=== PATIENT | male | born 1990 ===

== ENCOUNTER 2018-03-22 15:58 | Emergency (ER) | payer OTHER ==
[2018-03-22 16:28] VITALS: BMI 41.3
--- NOTE | 2018-03-22 17:48 | ED PDOC ---
History of Present Illness History of Present Illness: 28 year old male with a history of asthma presents to the ED with flu-like symptoms since yesterday morning. Patient reports he woke up with body-wide pain, cough and has felt feverish. He has taken Dayquil and Nyquil with some relief, last dose of Dayquil was at 2:30 or 3 pm today. Patient states his entire family has similar symptoms that began with his girlfriend, who has been sick for the past 2-3 days. He has shortness of breath with cough and right- sided ear pain but denies sore throat, nausea, vomiting, diarrhea, or any other medical complaints. Patient has been taking albuterol inhaler for shortness of breath with some relief. PMD: Dr. Ruth HPI: Influenza Time Seen by Provider: 03/22/18 16:14 Chief Complaint: Flu-like Symptoms Chief Complaint (Provider): Flu-like Symptoms History Per: Patient Exam Limitations: no limitations Onset/Duration Of Symptoms: Days (x2) Symptoms include: fever, bodyaches, cough, difficulty breathing. denies: sore throat, vomiting, diarrhea Sick Contacts (Context): Family Member(s) Past Medical History Reviewed: Historical Data, Nursing Documentation, Vital Signs Vital Signs: Last Vital Signs Temp 100.9 F H 03/22/18 17:33 Pulse 100 H 03/22/18 17:33 Resp 18 03/22/18 17:33 BP 123/77 03/22/18 17:33 Pulse Ox 95 03/22/18 17:33 - Medical History PMH: Asthma - Family History Family History: States: Unknown Family Hx - Home Medications Home Medications: Ambulatory Orders Medication Instructions Recorded Acetaminophen [Tylenol 325mg tab] 975 mg PO Q6 PRN 7 Days tab 03/22/18 Oseltamivir Phosphate [Tamiflu] 75 mg PO BID 5 Days capsule 03/22/18 RX: Albuterol 0.083% [Albuterol 3 ml IH Q6H PRN 7 Days neb 03/22/18 0.083% Inhal [place] (2.5 mg/3 ml) UD] RX: Ibuprofen [Motrin Tab] 800 mg PO Q6 PRN 7 Days tab 03/22/18 RX: Nebulizer Accessories [Adult 1 each MC ONCE PRN #1 each 03/22/18 Aerosol Mask] RX: Nebulizer [Aeroneb Go 1 each MC ONCE PRN #1 each 03/22/18 Nebulizer] - Allergies Allergies/Adverse Reactions: Allergies Allergy/AdvReac Type Severity Reaction Status Date / Time No Known Allergies Allergy Verified 03/22/18 16:36 Review of Systems ROS Statement: Except As Marked, All Systems Reviewed And Found Negative Constitutional: Positive for: Fever ENT: Positive for: Ear Pain (right) Respiratory: Positive for: Cough, Shortness of Breath Gastrointestinal: Negative for: Nausea, Vomiting, Diarrhea Physical Exam - Reviewed Nursing Documentation Reviewed: Yes Vital Signs Reviewed: Yes - Physical Exam Appears: Positive for: Uncomfortable Head Exam: Positive for: ATRAUMATIC, NORMOCEPHALIC Skin: Positive for: Normal Color, Warm, Dry Eye Exam: Positive for: EOMI, Normal appearance, PERRL ENT: Positive for: Normal ENT Inspection, Pharynx Is (clear), TM Is/Are (unremarkable) Neck: Positive for: Normal, Painless ROM Cardiovascular/Chest: Positive for: Regular Rate, Rhythm. Negative for: Murmur Respiratory: Positive for: Normal Breath Sounds. Negative for: Respiratory Distress Gastrointestinal/Abdominal: Positive for: Normal Exam, Soft. Negative for: Tenderness Extremity: Positive for: Normal ROM (upper and lower). Negative for: Pedal Edema, Deformity Neurologic/Psych: Positive for: Alert, Oriented (x3) Medical Decision Making Medical Decision Making: Time: 162 Impression: Influenza Plan: --Motrin 600 PO x1 --Tamiflu 75 PO x1 Time: 173 --Patients temperature found to be higher at 100.9. Will order an additional T ylenol 650 PO x1. Time: 185 --Fever defervesced and patient is feeling better. Patient is stable for discharge home with return instructions provided. Scribe Attestation: Documented by Chel Henderson, acting as a scribe for Kathy Danielson PA-C Provider Scribe Attestation: All medical record entries made by the Scribe were at my direction and personally dictated by me. I have reviewed the chart and agree that the record accurately reflects my personal performance of the history, physical exam, medical decision making, and the department course for this patient. I have also personally directed, reviewed, and agree with the discharge instructions and disposition. - ECG O2 Sat by Pulse Oximetry: 95 (RA) Pulse Ox Interpretation: Normal Disposition - Clinical Impression Clinical Impression: Influenza - Patient ED Disposition Is Patient to be Admitted: No Counseled Patient/Family Regarding: Studies Performed, Diagnosis, Need For Followup, Rx Given - Disposition Referrals: Javan Ruth MD [Family Provider] - Disposition: Routine/Home Disposition Time: 18:57 Condition: STABLE Additional Instructions: Take Tamiflu to reduce symptoms. Stay hydrated and get lots of rest. Avoid close contact with others as you are contagious. Take Tylenol and Ibuprofen for fever/body aches. Continue Albuterol inhaler and nebulizer for cough. Prescriptions: Acetaminophen [Tylenol 325mg tab] 975 mg PO Q6 PRN 7 Days tab PRN Reason: Fever >100.4 F RX: Albuterol 0.083% [Albuterol 0.083% Inhal [place] (2.5 mg/3 ml) UD] 3 ml IH Q6H PRN 7 Days neb PRN Reason: Cough RX: Ibuprofen [Motrin Tab] 800 mg PO Q6 PRN 7 Days tab PRN Reason: Pain, Moderate (4-7) RX: Nebulizer [Aeroneb Go Nebulizer] 1 each MC ONCE PRN #1 each PRN Reason: Shortness Of Breath RX: Nebulizer Accessories [Adult Aerosol Mask] 1 each MC ONCE PRN #1 each PRN Reason: Cough Oseltamivir Phosphate [Tamiflu] 75 mg PO BID 5 Days capsule Instructions: Flu, Adult (DC) Forms: [employer] (Ugandan), [facility] School/Work Excuse Print Language: TANZANIAN
[2018-03-22 18:43] VITALS: BP 129/78; PULSE 88; RESP 17; TEMP 98.7
[2018-03-22 18:59] VITALS: O2SAT 95
== END 2018-03-22 19:04 | disposition home or self-care (01) ==
LOC: H.ER 15:58
DX: J11.1 Influenza due to unidentified influenza virus with other respiratory manifestations (principal); J45.909 Unspecified asthma, uncomplicated; Z79.899 Other long term (current) drug therapy